=== PATIENT | female | born 1990 | race Caucasian/White ===

== ENCOUNTER 2017-03-18 14:57 | Emergency (ER) | payer BC ==
[2017-03-18 15:55] VITALS: BP 123/75
--- NOTE | 2017-03-18 16:23 | UC ---
Throat Pain/Nasal Todd HPI - HPI Summary HPI Summary: worsening sinus pain congestion fatigue fever - History of Current Complaint Chief Complaint: UCGeneralIllness Stated Complaint: SINUSES Time Seen by Provider: 03/18/17 16:16 Hx Obtained From: Patient Hx Last Menstrual Period: 03/04/17 ?: No Onset/Duration: Sudden Onset, Lasting Days - 7-10, Worse Since - past 5-7 Severity: Moderate Cough: None Associated Signs & Symptoms: Positive: Sinus Discomfort, Nasal Discharge, Fever - Allergies/Home Medications Allergies/Adverse Reactions: Allergies Allergy/AdvReac Type Severity Reaction Status Date / Time Sulfa Antibiotics Allergy Rash Verified 03/18/17 15:55 Home Medications: Home Medications Cetirizine* [ZyrTEC 10 MG TAB*] 10 mg PO DAILY 03/18/17 [History Confirmed 03/18] PMH/Surg Hx/FS Hx/Imm Hx Previously Healthy: Yes - Surgical History Surgical History: None - Family History Known Family History: Negative: Cardiac Disease, Hypertension, Diabetes, Respiratory Disease - Social History Occupation: Employed Full-time, Employed Part-time Alcohol Use: Occasionally Alcohol Amount: 5-7 Substance Use Type: None Smoking Status (MU): Never Smoked Tobacco Review of Systems Constitutional: Fever, Chills, Fatigue Skin: Negative Eyes: Negative ENT: Nasal Discharge, Sinus Congestion, Sinus Pain/Tenderness Respiratory: Negative Cardiovascular: Negative Gastrointestinal: Negative Genitourinary: Negative Motor: Negative Neurovascular: Negative Musculoskeletal: Negative Neurological: Headache Psychological: Negative Is Patient Immunocompromised?: No All Other Systems Reviewed And Are Negative: Yes Physical Exam Triage Information Reviewed: Yes Appearance: Well-Appearing, No Pain Distress, Well-Nourished Vital Signs: Initial Vital Signs Temp 99 F 03/18/17 15:51 Pulse 76 03/18/17 15:51 Resp 16 03/18/17 15:51 BP 123/75 03/18/17 15:51 Pulse Ox 100 03/18/17 15:51 Vital Signs Reviewed: Yes Eye Exam: Normal Eyes: Positive: Conjunctiva Clear ENT Exam: Normal ENT: Positive: Normal ENT inspection, Hearing grossly normal, Pharynx normal, Nasal congestion, TMs normal, Sinus tenderness, Uvula midline. Negative: Nasal drainage, Tonsillar swelling, Tonsillar exudate, Trismus, Muffled voice, Hoarse voice, Dental tenderness Dental Exam: Normal Neck exam: Normal Neck: Positive: Supple, Nontender, No Lymphadenopathy Respiratory Exam: Normal Respiratory: Positive: Chest non-tender, Lungs clear, Normal breath sounds, No respiratory distress, No accessory muscle use Cardiovascular Exam: Normal Cardiovascular: Positive: RRR, No Murmur, Pulses Normal, Brisk Capillary Refill Bowel Sounds: Positive: Present Musculoskeletal Exam: Normal Musculoskeletal: Positive: Strength Intact, ROM Intact Neurological Exam: Normal Neurological: Positive: Alert, Muscle Tone Normal Psychological Exam: Normal Psychological: Positive: Normal Response To Family Skin Exam: Normal Throat Pain/Nasal Course/Dx - Course Assessment/Plan: Augmentin, flonase, claritin, increase fluids follow with pcp - Differential Dx/Diagnosis Provider Diagnoses: Acute Rhinosinusitis Discharge - Discharge Plan Condition: Stable Disposition: HOME Prescriptions: Amoxicillin/Clavulanate TAB* [Augmentin TAB 875*] 875 mg PO BID #20 tab Fluconazole [Diflucan 150 MG (NF)] 150 mg PO ONCE #2 tab Patient Education Materials: Pseudoephedrine (By mouth), Sinusitis (ED) Referrals: Krystin Stevens MD [Primary Care Provider] - If Needed
--- OUTSIDE RECORDS SUMMARY | 2017-03-21 09:34 | XMS REPORT ---
:1990 External Reference #:[id number] Author Organization [facility] Address [address], [address] [place] [address] Phone [phone] Care Team Providers Name Role Phone Andressa Tovar PA Care Team Information Health Safety Instructor Unavailable Andressa Tovar PA Primary Care Physician Unavailable Payers Type Date Identification Numbers Payment Provider Subscriber Commercial PayID: [id number] BS ROSSANA Tatiana Swann [address] [address] [place] [address] Problems Description No Information Family History Date Family Member(s) Problem(s) Comments Father Hypertension Mother No Current Problems Siblings 2 Brother no health problems, Sister w HTN : (age 80 Maternal Grandmother due to Breast Years) Cancer Social History Type Date Description Comments Lives With Alone Diet 2008 Vegetarian 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 every day Ortho 0 Active Tablets 0.18/0.215/ 1 by Unknown Tri-Cyclen Lo 000 0.25 mg-25 mouth mcg every day 5-HTP Active Capsules Unknown 000 Immunizations CPT Code Status Date Vaccine Lot # [id number] Given 03/11/2017 Tdap injection [id number] Refused 03/11/2017 Influenza Virus Vaccine Quadrivalent Iiv4 Split Preser Free Id Vital Signs Date Vital Result Comment 03/11/2017 BP Systolic 110 mmHg BP Diastolic 80 mmHg Body Temperature 98.1 F Heart Rate 69 /min Respiratory Rate 17 /min Height 62.5 inches 5'2.50" Weight 164.50 lb BMI (Body Mass Index) 29.6 kg/m2 BSA (Body Surface Area) 1.77 m2 Biggs body weight in kilograms 51 Results Test Date Test Result H/L Range Note Laboratory test 08/31/2015 Gardnerella/Yeast: SEE RESULT BELOW 1 finding Vaginal Dna GC/Chlamydia 08/31/2015 Chlamydia Negative Negative Amplified Rna trachomatis Rna Neisseria gonorrhoeae (GC) Rna Negative Negative Laboratory test 08/31/2015 Trichomonas vaginalis Negative Negative 2 finding Rna Laboratory test 08/31/2015 Urine Culture SEE RESULT BELOW 3, 4 finding 1 SEE RESULT BELOW Name: HUI SWANN : [address]: Prabha Jacobsen MD Acct: [id number] Unit: [id number] AGE: 24 Location: [facility] Re08/31/15 SEX: F Status: DEP ER SPEC: [id number] OLGA: 08/31/15 [facility] DR: Prabha Jacobsen MD REQ: [id number] RECD: 08/31/15 STATUS: ZOEY SNATIZO DR: Krystin Stevens MD _ SOURCE: VAGINAL SPDESC: ORDERED: Joseph,Yeast DNA Procedure Result Reported Site Gardnerella/Yeast: Vaginal DNA Final 09/01/15- 1438 ML Organism 1 Negative Gardnerella Organism 2 POSITIVE [place] The presence of G. vaginalis, although suggestive, is not diagnostic for bacterial vaginosis. Results should be interpreted in conjuction with other clinical and laboratory data available. Women with vaginal discharge should be evaluated for risk factors of cervicitis and pelvic inflammatory disease, toxic shock syndrome (S.aureus), and if present, evaluated for organisms not included in this assay such as N. gonorrhoeae, C. trachomatis, Mobiluncus, Mycoplasma and/or Prevotella. Mixed infections may occur. The performance of this test on patient specimens collected during or immediately after antimicrobial therapy is unknown. The presence or absence of [place] species, or G. vaginalis cannot be used as a test for therapeutic success or failure. * ML - MAIN LAB ([facility]) . END OF REPORT * ML=Testing performed at Main Lab DEPARTMENT OF PATHOLOGY, [address] [place] [address] David Monson M.D. Director [facility] # [id number] 2 GC/Chlamydia Source?: Endocervical Trichomonas Source: Endocervical 3 [id number] 4 SEE RESULT BELOW Name: HUI SWANN : [address]: Prabha Jacobsen MD Acct: [id number] Unit: [id number] AGE: 24 Location: [facility] Re08/31/15 SEX: F Status: DEP ER SPEC: [id number] OLGA: 08/31/1542 [facility] [address]: Prabha Jacobsen MD REQ: [id number] RECD: 08/31/158967 STATUS: ZOEY MORALES DR: Krystin Stevens MD _ SOURCE: URINE SPDESC: ORDERED: Urine Culture COMMENTS: [id number] Procedure Result Reported Site Urine Culture Final 09/02/15- 1021 ML Organism 1 [place] ALBICANS [place] Count 75-100,000 (Many) CFU/ML * ML - MAIN LAB ([facility]) . END OF REPORT * ML=Testing performed at Main Lab DEPARTMENT OF PATHOLOGY, [address] [place] [address] David Monson M.D. Director [facility] # [id number] Procedures Description No Information Plan of Care 03/11/2017 - Andressa Tovar, PAR53.82 Chronic fatigue, unspecifiedComments:Will check labs and review at follow up. I will call if anything comes back seemingly contributing to your symptoms.R51 HeadacheComments:These may be related to both tension and allergies. Let's see what happens as we use the Zyrtec. Some Eucalyptus may also help reduce sinus congestion. If headaches persist, you may want to contact [facility] at [phone]. This can be very effective, particularly for tension headaches.J30.9 Allergic rhinitis, unspecifiedNew Medication:Zyrtec Allergy 10 mgComments:ABREU and fatigue may be related to allergies. Let's try the Zyrtec and see how you do. Since nasal spray aren't a good option, you might need to use some Sudafed to relieve congestion.Follow up:2-3 [id number] Encounter for immunizationImmunizations/ Injections:Tdap injection
== END 2017-03-18 16:31 | disposition home or self-care (01) ==
LOC: UCCORT 14:57
DX: J01.90 Acute sinusitis, unspecified (principal)
CPT/HCPCS: 99212; G0463

== ENCOUNTER 2018-02-20 07:29 | Emergency (ER) | payer BC ==
[2018-02-20 07:42] VITALS: BP 131/88
--- NOTE | 2018-02-20 07:52 | UC ---
Allergic Reaction HPI - HPI Summary HPI Summary: Patient presents to urgent care stating that her lips were swollen last night. Patient states mostly on the left lower lip. Patient states this morning she still feels a little swollen but not as bad. Patient states yesterday overnight when this happened her chest Blotchy. No trouble breathing. No nausea. No itching. Patient was seen by dermatology last week because she had a rash on her arms it was thought to be viral. Patient's been applying steroid cream once a day for this with improvement. Patient denies fevers or chills. No sore throat. No ear pain no sinus congestion. Patient without any history of cold sores. Patient states she just felt anxious. Patient states she did eat shrimp yesterday 6 hours prior to feeling lip is swollen. Patient's never had a problem her allergy to shellfish in the past. Patient states she is not . 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 - History of Current Complaint Chief Complaint: UCGeneralIllness Stated Complaint: ALLERGY REACTION-SWOLLEN LIPS Time Seen by Provider: 02/20/18 07:51 Hx Obtained From: Patient Hx Last Menstrual Period: 01/30/18 Pain Intensity: 0 - Allergies/Home Medications Allergies/Adverse Reactions: Allergies Allergy/AdvReac Type Severity Reaction Status Date / Time Sulfa (Sulfonamide Allergy Rash Verified 02/20/18 07:38 Antibiotics) Home Medications: Home Medications Ibuprofen TAB* [Motrin TAB* 400 MG] 400 mg PO Q6H PRN 02/20/18 [History Confirmed 02/20/18] Norgestimate-Ethinyl Estradiol [Ortho Tri-Cyclen Lo Tablet] 1 each PO DAILY [History Confirmed 02/20/18] Triamcinolone 0.1% CREAM(NF) [Kenalog 0.1% Cream (NF)] 1 applic TOPICAL DAILY [History Confirmed 02/20/18] PMH/Surg Hx/FS Hx/Imm Hx Previously Healthy: Yes - Surgical History Surgical History: None - Family History Known Family History: Negative: Cardiac Disease, Hypertension, Diabetes, Respiratory Disease - Social History 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 EOM intact and full ENT: Hearing grossly normal TM x 2 clear, turbinates wnl, no pnd, mmoist, uvula midline, no exudate, no erythema,. Pt with focal area of mild edema left, lower lateral lip no open wounds mild TTP erythema, fluctuance. no other perioral edema Neck: Positive: Supple Respiratory: Positive: No respiratory distress, No accessory muscle use + CTA throughout no w/r Cardiovascular: RRR nl s1, s2 no m/r CBT <2 sec abd soft + BS nt/nd no guarding, no distension Musculoskeletal Exam: PAULSON x 4 without difficulty Strength Intact, ROM Intact Neurological: Positive: Alert, + sensation throughout, symmetric smile very small area edema left lower lateral lip small patch paresthesia left, latearl inferior margin of lip at lateral edge with mild edema Psychological: Positive: Normal Response To Family Skin: Positive: no rash, no ecchymosis no hive, erythema, rash Triage Information Reviewed: Yes Vital Signs: Initial Vital Signs Temp 98 F 02/20/18 07:35 Pulse 80 02/20/18 07:35 Resp 16 02/20/18 07:35 BP 131/88 02/20/18 07:35 Pulse Ox 100 02/20/18 07:35 Allergic Reaction Course/Dx - Course Course Of Treatment: Pt presnts [facility] report of edema lower lip last night - mostly isolated to lower , left side. Pt states had blotchy reddnes to anterior chest wall - resolved. no fever, chills. pt had URI - resolved On exam, no hives, pt with slight edema lower, lateral lip with mild decreased sensation - suspect early cold sore. d/w pt possibility for flores's but no other sx. will start prednisone. cold pack. avoid NSAID. benadryl prn. return precaution. work note. pt comfortable and in agreement with plan - Differential Dx/Diagnosis Provider Diagnoses: left lower lip edema Discharge - Sign-Out/Discharge Documenting (check all that apply): Patient Departure All imaging exams completed and their final reports reviewed: No Studies - Discharge Plan Condition: Stable Disposition: HOME Prescriptions: predniSONE TAB* [Deltasone TAB*] 50 mg PO DAILY #5 tab Patient Education Materials: General Allergic Reaction (ED) Forms: *Work Release Referrals: Krystin Stevens MD [Primary Care Provider] - Additional Instructions: As discussed, the provider thinks your symptoms are related to a virus - it is possible you may develop a cold sore in the area of swelling on your lip It is recommended you take prednisone as prescribed starting today Okay to apply cool soaks to your lip Okay to take Benadryl 25mg every 6-8 hours for hives or itching - do not drive, operate machinery, or drink alcohol while taking this medication as it will likely cause sedation Avoid NSAIDs (Motrin, Advil, naproxyn, Ibuprofen) for 2-3 days If your symptoms progress or you have any other concerns - difficulty swallowing , swelling inside your mouth, shortness of breath or other concerns it is recommended you call 911 or go immediately to the emergency department for further evaluation Schedule a follow-up appointment with your primary care provider - Billing Disposition and Condition Condition: STABLE Disposition: Home
== END 2018-02-20 08:15 | disposition home or self-care (01) ==
LOC: UCCORT 07:29
DX: R60.9 Edema, unspecified (principal); Z88.1 Allergy status to other antibiotic agents
CPT/HCPCS: 99212; G0463

== ENCOUNTER 2018-04-30 09:48 | Emergency (ER) | payer BC ==
--- OUTSIDE RECORDS SUMMARY | 2018-04-30 09:58 | XMS REPORT | Continuity of Care Document ---
:1990 External Reference #:[id number] Author Name Marc Prajapati FNP Address [address] [facility] [place] [address] Care Team Providers Name Role Phone Andressa Tovar PA Care Team Information Supervisor [employer] Unavailable Andressa Tovar PA Primary Care Physician Unavailable Payers Type Date Identification Numbers Payment Provider Subscriber Policy Number: [id number] Ar Swann PayID: [id number] [address] [address] [place] [address] Advance Directives Description No Information Available Problems Description No Information Family History Date Family Member(s) Problem(s) Comments Father Hypertension Mother No Current Problems Siblings 2 Brother no health problems, Sister w HTN : (age 80 Maternal Grandmother due to Breast Years) Cancer Social History Type Date Description Comments Sex Unknown Lives With Alone Diet 2008 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 Tobacco Use Start: Unknown Never Smoked Cigarettes Smoking Status Reviewed: 02/27/18 Never Smoked Cigarettes ETOH Use Occasionally consumes alcohol Tobacco Use Start: Unknown Patient denies history of smoking Allergies, Adverse Reactions, Alerts Date Description Reaction Status Severity Comments 03/11/2017 Sulfa Drugs Active Medications Medication Date Status Form Strength Qnty SIG Indications Ordering Provider Montelukast 02/27/ Active Tablets 10mg 90tabs take one J30.9 Clune, Sodium 2018 tablet by Jenniferle mouth igh, TILE SHADER every evening Mometasone 02/27/ Active Suspension 50mcg/Act 17gm one spray J30.9 Clune, Furoate 2018 each Jenniferle nostril igh, TILE SHADER every day - *will use OTC first Zyrtec Allergy 03/11/ Active Capsules 10mg 30caps 1 by J30.9 Urszula, 2017 mouth Elena, every day M.D. Ortho 00/00/ Active Tablets 0.18/0.215 1 by Unknown Tri-Cyclen Lo 0000 /0.25 mouth mg-25 mcg every day Amoxicillin 12/27/ Hx Tablets 875mg 20tabs 1 by J01.90 Harsh, 2017 - mouth Wendi, 01/06/ twice a PNP-BC, 2017 day TILE SHADER, Ibclc 5-HTP / Hx Capsules Unknown 0000 - 2017 Immunizations CPT Code Status Date Vaccine Lot # [id number] Given 03/11/2017 Tdap injection [id number] Refused 03/11/2017 Influenza Virus Vaccine Quadrivalent Iiv4 Split Preser Free Id Vital Signs Date Vital Result Comment 02/27/2018 9:06am BP Systolic Sitting Left Arm 112 mmHg BP Diastolic Sitting Left Arm 76 mmHg Body Temperature 98.0 F Heart Rate 72 /min 18 Respiratory Rate 18 /min Height 63 inches 5'3" Weight 172.25 lb BMI (Body Mass Index) 30.5 kg/m2 BSA (Body Surface Area) 1.81 m2 Oriental body weight in kilograms 52 kg O2 % BldC Oximetry 98 % 12/27/2017 3:30pm BP Systolic Sitting Left Arm 128 mmHg BP Diastolic Sitting Left Arm 70 mmHg Body Temperature 99.4 F Heart Rate 94 /min Height 63 inches 5'3" Weight 168.00 lb BMI (Body Mass Index) 29.8 kg/m2 BSA (Body Surface Area) 1.80 m2 Oriental body weight in kilograms 52 kg 03/11/2017 1:32pm BP Systolic 110 mmHg BP Diastolic 80 mmHg Body Temperature 98.1 F Heart Rate 69 /min Respiratory Rate 17 /min Height 62.5 inches 5'2.50" Weight 164.50 lb BMI (Body Mass Index) 29.6 kg/m2 BSA (Body Surface Area) 1.77 m2 Oriental body weight in kilograms 51 kg Results Test Date Facility Test Result H/L Range Note CBS 03/11/[address] [facility] [address] White Blood 5.9 K/uL N 3.1-10.7 1 W/Automated [address] [place] [address] [phone] Red Blood Count 4.36 M/uL N 3.90-5.40 Hemoglobin 13.7 gm/dL N 11.6-15.8 Hematocrit 39.4 % N 36.0-46.1 Mean Cell Volume 90.4 fl N 80.9-99.0 Mean Corpuscular HGB 31.4 pg N 25.9-32.7 Mean Corpuscular HGB Conc 34.8 g/dL High 30.8-34.3 Platelet Count 239 K/uL N 155-360 Red Cell Distri Width SD 37.4 fl N 3-47 Red Cell Distri Width %CV 11.7 % N 11.7-14.4 Mean Platelet Volume 10.5 fL N 8.9-12.4 Neut% 50.5 % N 40.4-72.8 Lymph % 40.9 % N 20.0-42.0 Amador % 5.9 % N 4.3-13.2 Eo% 2.4 % N 0.0-6.6 Bas% 0.3 % N 0.0-1.1 Neut# 2.98 K/uL N 1.8-7.0 Lymph # 2.42 K/uL N 1.0-4.0 Amador # 0.35 K/uL N 0.3-0.9 Eos # 0.14 K/uL N 0.0-0.5 Baso # 0.02 K/uL N 0.0-0.1 Comprehensive Metabolic 03/11/[address] [facility] [address] Glucose 77 mg/dL N 74 -[address] [place], [place] [id number] [phone] BUN 6 mg/dL Low 7-18 Creatinine 0.7 mg/dL N 0.6-1.3 Glom Filtration Rate, Estimate >60 mL/min >60 If >60 mL/min >60 2 BUN/Creat 8.5 ratio Sodium 139 mmol/L N 136-145 Potassium 4.1 mmol/L N 3.5-5.1 Chloride 108 mmol/L High 98-107 Carbon Dioxide 26 mmol/L N 21-32 Anion Gap 5 mEq/L Low 8-16 Calcium 8.7 mg/dL N 8.5-10.1 Total Protein 6.8 g/dL N 6.4-8.2 Albumin 3.5 g/dL N 3.4-5.0 Globulin 3.3 g/dL N 1.9-4.3 Alb/Glob 1.1 ratio Bilirubin,Total 0.2 mg/dL N 0.2-1.0 Sgot/Ast 29 U/L N 15-37 SGPT/Alt 50 U/L N 12-78 Alkaline Phosphatase 42 U/L Low 45-117 Laboratory test 03/11/[address] [facility] [address] Ebv Early <9.0 U/mL 0.0-8.[address] Antigen AB, [place] [address] [phone] Vitamin D,25-Hydroxy 64.0 ng/mL 30.0-100.0 4 Thyroid Stim Hormone 0.67 uIU/mL N 0.30-4.20 Laboratory 08/31/2015 [facility] Gardnerella/Yeast: SEE RESULT 5 test finding [phone] Vaginal Dna BELOW GC/Chlamydia 08/31/2015 [facility] Chlamydia trachomatis Negative N Negative Amplified Rna [phone] Rna Neisseria gonorrhoeae (GC) Rna Negative N Negative Laboratory 08/31/2015 [facility] Trichomonas Negative N Negative 6 test finding [phone] vaginalis Rna Laboratory 08/31/2015 [facility] Urine Culture SEE RESULT 7, 8 test finding [phone] BELOW 1 R53.82 2 Note: Persistent reduction for 3 months or more in an eGFR <60 mL/min/1.73 m2 defines CKD. Patients with eGFR values >/=60 mL/min/1.73 m2 may also have CKD if evidence of persistent proteinuria is present. The original MDRD equation for estimated GFR is not valid for patients less than 18 years of age. Additional information may be found at www.kdoqi.org. 3 Negative < 9.0 Equivocal 9.0 - 10.9 Positive >10.9 Performed at: RN - [facility] [address], [place], [place] [id number] Critical Care Physician: Harper Pedraza MD, Phone: [phone] Vitamin D deficiency has been defined by the [place] of [employer] and an Endocrine Society practice guideline as a level of serum 25-OH vitamin D less than 20 ng/mL (1,2). The Endocrine Society went on to further define vitamin D insufficiency as a level between 21 and 29 ng/mL (2). 1. IOM ([place] of [employer]). 2010. Dietary reference intakes for calcium and D. [place]: The National Academies Press. 2. Carlos MF, Geeta NC, Hamzah ABREU, et al. Evaluation, treatment, and prevention of vitamin D deficiency: an Endocrine Society clinical practice guideline. JCEM. 2010; 96(7):1911-30. Performed at: [address] [id number] Critical Care Physician: Harper Pedraza MD, Phone: [phone] SEE RESULT BELOW Name: MARNI SWANN : [address]: Prabha Jacobsen MD Acct: [id number] Unit: [id number] AGE: 24 Location: [facility] Re08/31/15 SEX: F Status: DEP ER SPEC: [id number] OLGA: 08/31/[address] [facility] [address]: Prabha Jacobsen MD REQ: [id number] RECD: 08/31/15 STATUS: ZOEY MORALES DR: Krystin Stevens MD _ SOURCE: VAGINAL [facility]: ORDERED: Joseph,Yeast DNA Procedure Result Reported Site [...] or failure. * ML - MAIN LAB ([facility]) . END OF REPORT * ML=Testing performed at Main Lab DEPARTMENT OF PATHOLOGY, [address] [place] [address] David Monson M.D. Director [facility] # [id number] GC/Chlamydia Source?: Endocervical Trichomonas Source: Endocervical 7 [id number] SEE RESULT BELOW Name: MARNI SWANN : [address]: Prabha Jacobsen MD Acct: [id number] Unit: [id number] AGE: 24 Location: [facility] Re08/31/15 SEX: F Status: DEP ER SPEC: [id number] OLGA: 08/31/15-[address] [facility] [address]: Prabha Jacobsen MD REQ: [id number] RECD: 08/31/15 STATUS: ZOEY MORALES DR: Krystin Stevens MD _ SOURCE: URINE SPDESC: ORDERED: Urine Culture COMMENTS: [id number] Procedure Result Reported Site Urine Culture Final 09/02/15- 1021 ML Organism 1 [place]ANS Dexter Count 75-100,000 (Many) CFU/ML * ML - MAIN LAB ([facility]) . END OF REPORT * ML=Testing performed at Main Lab DEPARTMENT OF PATHOLOGY, [address] [place] [address] David Monson M.D. Director [facility] # [id number] Procedures Description No Information Available Encounters Type Date Location Provider Dx Diagnosis Office Visit 02/27/2018 Family Medicine Jose F Prajapati30.9 Allergic rhinitis, 8:45a Logan Tran, unspecified TILE SHADER B08.8 Oth viral infections with skin and mucous membrane lesions Office Visit 12/27/2017 3:00p Family Medicine Wendi House, J01.90 Acute sinusitis, Logan TINSLEY PNP-BC, TILE SHADER, unspecified Ibclc Office Visit 03/11/2017 1:30p Family Medicine Andressa Tovar, R53.82 Chronic fatigue, Logan TINSLEY PA unspecified R51 Headache J30.9 Allergic rhinitis, unspecified Z23 Encounter for immunization Plan of Treatment 02/27/2018 - Marc Prajapati FNPJ30.9 Allergic rhinitis, unspecifiedNew Medication:Montelukast Sodium 10 mg - take one tablet by mouth every eveningMometasone Furoate 50 mcg/Act - one spray each nostril every day - *will use OTC firstComments:Discussed use of nasal sprays - also consider using sydnee pot or saline irrigation to clear the sinuses of allergens.discussed possible allergy referral -Follow up:2 weeks f/u allergies - 15 min, may need allergy [id number] Other specified viral infections characterized by skin and mucous membrane lesionsComments:essentially resolved at this time.
[2018-04-30 10:39] VITALS: BP 116/73
[2018-04-30 11:26] LABS: Influenza A Molecular NEGATIVE (Negative); Influenza B Molecular NEGATIVE (Negative)
--- NOTE | 2018-04-30 11:26 | UC ---
Respiratory Complaint HPI - HPI Summary HPI Summary: Pt c/o cough, nasal and chest congestion, cough, body aches, ST X 1 month. Pt has hx of asthma and "ran out" of her "rescue inhaler" - History of Current Complaint Chief Complaint: UCRespiratory Stated Complaint: COUGH, SHORTNESS OF BREATH Time Seen by Provider: 04/30/18 10:56 Hx Obtained From: Patient Hx Last Menstrual Period: 04/24/18 ?: No Onset/Duration: Sudden Onset, Lasting Weeks, Still Present Timing: Constant Severity Initially: Moderate Severity Currently: Moderate Pain Intensity: 6 Character: Cough: Nonproductive Aggravating Factors: Deep Breaths, Recumbent Position Alleviating Factors: Nothing Associated Signs And Symptoms: Positive: URI, Nasal Congestion Related History: Seasonal Allergies - Risk Factors Pulmonary Embolism Risk Factors: Negative Cardiac Risk Factors: Negative Pseudomonas Risk Factors: Chronic Lung Disease - asthmka Tuberculosis Risk Factors: Negative - Allergies/Home Medications Allergies/Adverse Reactions: Allergies Allergy/AdvReac Type Severity Reaction Status Date / Time Sulfa (Sulfonamide Allergy Rash Verified 04/30/18 10:31 Antibiotics) PMH/Surg Hx/FS Hx/Imm Hx Previously Healthy: Yes Respiratory History: Asthma - Surgical History Surgical History: None - Family History Known Family History: Negative: Cardiac Disease, Hypertension, Diabetes, Respiratory Disease - Social History Occupation: Employed Full-time Lives: With Family Alcohol Use: Occasionally Alcohol Amount: 5-7 Substance Use Type: None Smoking Status (MU): Never Smoked Tobacco Have You Smoked in the Last Year: No Review of Systems All Other Systems Reviewed And Are Negative: Yes Constitutional: Positive: Fatigue Skin: Positive: Negative Eyes: Positive: Negative ENT: Positive: Sore Throat Respiratory: Positive: Cough Cardiovascular: Positive: Negative Gastrointestinal: Positive: Negative Genitourinary: Positive: Negative Motor: Positive: Negative Neurovascular: Positive: Negative Musculoskeletal: Positive: Myalgia Neurological: Positive: Negative Psychological: Positive: Negative Is Patient Immunocompromised?: No Physical Exam Triage Information Reviewed: Yes Appearance: Ill-Appearing Vital Signs: Initial Vital Signs Temp 97.8 F 04/30/18 10:33 Pulse 76 04/30/18 10:33 Resp 18 04/30/18 10:33 BP 116/73 04/30/18 10:33 Pulse Ox 98 04/30/18 10:33 Vital Signs Reviewed: Yes Eye Exam: Normal ENT: Positive: Nasal congestion, Sinus tenderness Dental Exam: Normal Neck exam: Normal Respiratory Exam: Normal Cardiovascular Exam: Normal Musculoskeletal Exam: Normal Neurological Exam: Normal Psychological Exam: Normal Skin Exam: Normal UC Diagnostic Evaluation - Laboratory O2 Sat by Pulse Oximetry: 98 Respiratory Course/Dx - Differential Dx/Diagnosis Differential Diagnosis/HQI/PQRI: Bronchitis, Influenza, Sinusitis Provider Diagnosis: Sinusitis, Bronchitis Discharge - Sign-Out/Discharge Documenting (check all that apply): Patient Departure All imaging exams completed and their final reports reviewed: No Studies - Discharge Plan Condition: Stable Disposition: HOME Prescriptions: Albuterol HFA INHALER* [Ventolin HFA Inhaler*] 1 - 2 puff INH Q4H PRN #1 mdi PRN Reason: Sob/Wheezing Azithromycin TAB* [Zithromax TAB (Z-ZAIDA) 250 mg #6 tabs] 2 tab PO .TODAY, THEN 1 DAILY #1 zaida Benzonatate CAP* [Tessalon 100 MG CAP*] 200 mg PO Q8H PRN #30 cap PRN Reason: Cough predniSONE TAB* [Deltasone 10 MG TAB*] 30 mg PO DAILY #12 tab Patient Education Materials: Sinusitis (ED), Acute Bronchitis (ED) Referrals: Krystin Stevens MD [Primary Care Provider] - If Needed - Billing Disposition and Condition Condition: STABLE Disposition: Home - Attestation Statements Provider Attestation: Per institutional requirements, I have reviewed the chart, however, I was not consulted specifically or made aware of this patient by the midlevel provider. I did not personally evaluate, interact with , or disposition this patient.
== END 2018-04-30 11:32 | disposition home or self-care (01) ==
LOC: UCCORT 09:48
DX: J45.909 Unspecified asthma, uncomplicated (principal); J32.9 Chronic sinusitis, unspecified; Z88.2 Allergy status to sulfonamides
CPT/HCPCS: 99212; G0463

== ENCOUNTER 2018-10-04 11:22 | Emergency (ER) | payer BC ==
[2018-10-04 11:41] VITALS: BP 123/48
--- NOTE | 2018-10-04 12:03 | UC ---
UC General HPI - HPI Summary HPI Summary: 2 DAY HX OF ITCHING FROM SHAVING PUBIC REGION BUT ALSO VAGINAL BURNING. STATES HAS HAD THE ITCHING FROM SAME IN PAST AND TOPICAL STEROID HELPS; HOWEVER , THE VAGINAL BURNING DOES NOT MAKE SENSE. DENIES NEW SOAPS/VAGINAL PRODUCTS. HAY BALER BOYFRIEND THUS NOT CONCERNED ABOUT AN STD BUT STATES TESTING WOULD BE OK. NO FEVER, DISCHARGE OR ABDOMINAL PAIN. HX PUSTULES IN COLLEGE BUT NEVER DIAGNOSED WITH MRSA. - History of Current Complaint Chief Complaint: UCGU Stated Complaint: URINARY/PERSONAL Time Seen by Provider: 10/04/18 11:54 Hx Obtained From: Patient Hx Last Menstrual Period: 09/18/18 Onset/Duration: Gradual Onset Timing: Constant Pain Intensity: 0 Aggravating: NOTHING Associated Signs & Symptoms: Negative: Abdominal Pain - Allergy/Home Medications Allergies/Adverse Reactions: Allergies Allergy/AdvReac Type Severity Reaction Status Date / Time Sulfa (Sulfonamide Allergy Rash Verified 10/04/18 11:38 Antibiotics) PMH/Surg Hx/FS Hx/Imm Hx Previously Healthy: Yes - Surgical History Surgical History: None - Family History Known Family History: Negative: Cardiac Disease, Hypertension, Diabetes, Respiratory Disease - Social History Alcohol Use: Occasionally Alcohol Amount: 5-7 Substance Use Type: None Smoking Status (MU): Never Smoked Tobacco Have You Smoked in the Last Year: No Review of Systems All Other Systems Reviewed And Are Negative: No Constitutional: Negative: Fever, Chills Gastrointestinal: Negative: Abdominal Pain Genitourinary: Positive: Dysuria, Vaginal/Penile Itching. Negative: Hematuria, Frequency, Urgency, Vaginal/Penile Discharge, Ulceration/Lesion, Abnormal Bleeding Physical Exam Triage Information Reviewed: Yes Appearance: Well-Appearing Vital Signs: Initial Vital Signs Temp 97.8 F 10/04/18 11:39 Pulse 76 10/04/18 11:39 Resp 16 10/04/18 11:39 BP 123/48 10/04/18 11:39 Pulse Ox 99 10/04/18 11:39 Vital Signs Reviewed: Yes Neck: Positive: Supple Respiratory: Positive: No respiratory distress Cardiovascular: Positive: RRR Abdomen Description: Positive: Nontender, No Organomegaly, Soft Bowel Sounds: Positive: Present Pelvic Exam: Positive: Other - Mons area with small pimples c/w folliculitis. Inner folds of labia minor and vaingal opening with erythema but no lesions and no ordor. vaginal vault has some thick white meterial. cultures obtained. os closed. no cmt, masses or bleeding. Musculoskeletal: Positive: ROM Intact Neurological: Positive: Alert Psychological: Positive: Age Appropriate Behavior Skin Exam: Normal Diagnostics - Laboratory Lab Results: U/A= 1+PROTEIN, 1+ LEUKOCYTES, TRACE KETONES Course/Dx - Differential Dx - Multi-Symptom Differential Diagnoses: Other - mons area c/w folliculitis from shaving. pt agrees to stop and dispose of last shaver. will tx with keflex because no hx MRSA and keflex will give urine coverage. pelvic exam is c/w yeast vagnitis and pelvic cultures are pending. u/a=1+ leukocytes with culture pending. - Diagnoses Provider Diagnosis: Folliculitis, Vaginitis and vulvovaginitis Discharge - Sign-Out/Discharge Documenting (check all that apply): Patient Departure All imaging exams completed and their final reports reviewed: No Studies - Discharge Plan Condition: Stable Disposition: HOME Prescriptions: Cephalexin CAP* [Keflex CAP*] 500 mg PO TID 7 Days #21 cap Fluconazole [Diflucan 150 MG (NF)] 150 mg PO ONCE #2 tab Patient Education Materials: Vaginitis (ED), Folliculitis (ED) Referrals: Krystin Stevens MD [Primary Care Provider] - Additional Instructions: FOLLOW UP IF NOT BETTER IN 5-7 DAYS OR SOONER IF WORSE. - Billing Disposition and Condition Condition: STABLE Disposition: Home
[2018-10-06 12:01] LABS: Neisseria gonorrhoeae (GC) RNA Negative (Negative)
== END 2018-10-04 12:44 | disposition home or self-care (01) ==
LOC: UCCORT 11:22
DX: L73.9 Follicular disorder, unspecified (principal); N76.0 Acute vaginitis; Z88.2 Allergy status to sulfonamides
CPT/HCPCS: 81003; 87086; 87480; 87491; 87510; 87591; 87660; 99212; G0463